=== PATIENT | female | born 1995 | race Caucasian/White ===

== ENCOUNTER 2017-08-01 21:01 | Emergency (ER) | payer MEDICAID ==
[~2017-08-01] VITALS: Ht 157.5 cm; Wt 90.7 kg
[2017-08-01 21:20] VITALS: Ht 157.5 cm; Wt 90.7 kg
[2017-08-01 23:50] VITALS: BP 129/74
== END 2017-08-01 23:50 | disposition home or self-care (01) ==
LOC: ED 21:01
DX: R53.1 Weakness (principal); R51 Headache; R10.9 Unspecified abdominal pain; R11.0 Nausea
CPT/HCPCS: 82962